=== PATIENT | female | born 1935 | race Caucasian/White ===

== ENCOUNTER → 2017-04-15 | Outpatient (CLI) | payer MEDICARE, OTHER ==
[~2017-04-15] MED LIST: ASP81TEC PO; ENAL10TA PO; LMTL2.5TRX PO; SIMV20TA3 PO
--- NOTE | 2017-04-18 18:55 | Diagnostic Imaging Report ---
Bilateral screening mammogram 2D views with tomosynthesis. The current study was also evaluated with a Computer Aided Detection (CAD) system. INDICATION: Screening. No current complaints stated on the questionnaire. COMPARISON: 04/08/2016. FINDINGS: The breasts are composed of scattered fibroglandular densities. There are scattered benign-appearing calcifications. Allowing for technique and positional differences, no suspicious change is seen. IMPRESSION: No significant change. ACR BI-RADS Category 2: Benign findings. Result letter will be mailed to the patient. Note: At least 10% of breast cancer is not imaged by mammography. Dictated by: Dictated on workstation # [id number]
== END ==
LOC: RAD 10:07
PROVIDERS: ATTEND Internal Medicine
DX: Z12.31 Encounter for screening mammogram for malignant neoplasm of breast (principal)
CPT/HCPCS: 77067

== ENCOUNTER → 2018-01-06 | Outpatient (CLI) | payer MEDICARE, OTHER ==
[2018-01-06 15:02] LABS: BASOPHILS % (AUTO) 0 % (0-10); EOSINOPHILS # (AUTO) 0.3 10^3/uL (0.0-0.3); EOSINOPHILS % (AUTO) 4 % (0-10); HEMATOCRIT 38 % (35-52); HEMOGLOBIN 12.7 G/DL (11.5-16.0); LYMPHOCYTES % (AUTO) 36 % (12-44); MEAN CORPUSCULAR HEMOGLOBIN 31 PG (25-34); MEAN CORPUSCULAR HGB CONC 33 G/DL (32-36); MEAN CORPUSCULAR VOLUME 93 FL (80-99); MEAN PLATELET VOLUME 9.6 FL (7.4-10.4); MONOCYTES # (AUTO) 0.6 X 10^3 (0.0-1.0); MONOCYTES % (AUTO) 7 % (0-12); NEUTROPHILS # (AUTO) 4.4 X 10^3 (1.8-7.8); NEUTROPHILS % (AUTO) 53 % (42-75); PLATELET COUNT 284 10^3/uL (130-400); RED BLOOD COUNT 4.11 10^6/uL (4.35-5.85); RED CELL DISTRIBUTION WIDTH 12.1 % (10.0-14.5); WHITE BLOOD COUNT 8.2 10^3/uL (4.3-11.0)
[2018-01-06 15:19] LABS: ALANINE AMINOTRANSFERASE 15 U/L (0-55); ALBUMIN 4.3 GM/DL (3.2-4.5); ALKALINE PHOSPHATASE 33 U/L (40-136); BILIRUBIN,TOTAL 0.3 MG/DL (0.1-1.0); BUN/CREATININE RATIO 24; CALCIUM 9.7 MG/DL (8.5-10.1); CARBON DIOXIDE 28 MMOL/L (21-32); CHLORIDE 109 MMOL/L (98-107); CREATININE SERUM 0.72 MG/DL (0.60-1.30); GFR ESTIMATED > 60; GLUCOSE 71 MG/DL (70-105); POTASSIUM 4.2 MMOL/L (3.6-5.0); SODIUM 141 MMOL/L (135-145)
--- NOTE | 2018-01-06 15:24 | Diagnostic Imaging Report ---
Indication: Radiculopathy. Comparison: None. Findings: Three views of the lumbar spine are obtained. No acute fracture, malalignment or osseous destructive process is seen. Vertebral body heights are maintained. Disc spaces appear fairly preserved. There is endplate spurring and mild facet arthropathy in the lumbar spine. There are degenerative changes of the sacroiliac joints. Impression: Mild degenerative changes. No acute fracture is seen. Dictated by: Dictated on workstation # [id number]
== END ==
LOC: RAD 14:39
PROVIDERS: ATTEND Family Medicine
DX: M47.26 Other spondylosis with radiculopathy, lumbar region (principal)
CPT/HCPCS: 36415; 72100; 80053; 85025

== ENCOUNTER → 2018-02-04 | Outpatient (CLI) | payer MEDICARE, OTHER ==
--- NOTE | 2018-02-04 09:42 | Diagnostic Imaging Report ---
PROCEDURE: MRI left joint lower extremity without contrast. TECHNIQUE: Multiplanar, multisequence non contrast-enhanced MRI of the left lower extremity was accomplished. INDICATION: Twisting left knee injury one month ago with medial left knee pain since that time. COMPARISON: None FINDINGS: Some sequences demonstrate motion artifact. There is marked bone marrow edema in the medial tibial plateau, crossing the midline. Mild bone marrow edema is seen at the anterior medial femoral condyle. There is questionable linear hypointensity underlying the medial tibial plateau (image 12, series 7), which may represent a nondisplaced impaction or insufficiency fracture. There is a small left knee joint effusion. There is heterogeneity and surface irregularity of the patellofemoral articular cartilage. The medial compartment articular cartilage demonstrates marked thinning, heterogeneity, and surface irregularity with overall high-grade cartilage loss. The lateral compartment demonstrates thinning, surface irregularity and heterogeneity with no large full thickness defect seen. The medial meniscus demonstrates a complete radial tear posteriorly near the root. The lateral meniscus appears intact. The medial collateral ligament and the lateral collateral ligamentous complex appear intact. The anterior and posterior cruciate ligaments are intact. The extensor mechanism is intact. There is minimal edema in Hoffa's fat pad. There is mild subcutaneous edema anteriorly. There is trace fluid and Connelly's cyst. There is moderate deep soft tissue edema posterior to the medial tibia. IMPRESSION: 1. Marked bone marrow edema at the left medial tibial plateau, with suspected insufficiency/impaction fracture. 2. Complete radial tear through the posterior medial meniscus near the root. 3. Small left knee joint effusion. Dictated by: Dictated on workstation # [id number]
== END ==
LOC: RAD 08:39
PROVIDERS: ATTEND Nurse Practitioner Family
DX: S83.242A Other tear of medial meniscus, current injury, left knee, initial encounter (principal); X50.1XXA Overexertion from prolonged static or awkward postures, initial encounter
CPT/HCPCS: 73721

== ENCOUNTER → 2018-04-17 | Outpatient (CLI) | payer MEDICARE, OTHER ==
--- NOTE | 2018-04-18 13:38 | Diagnostic Imaging Report ---
INDICATION: Routine screening. COMPARISON: 04/15/2017 and 04/08/2016. TECHNIQUE: 2D and 3D bilateral screening mammography was performed with CAD. FINDINGS: Scattered fibroglandular densities are identified bilaterally. Benign-appearing parenchymal and vascular calcifications are noted bilaterally. The parenchymal pattern appears stable. No dominant mass or malignant-appearing microcalcifications are seen. The axillae are unremarkable. IMPRESSION: No mammographic features suspicious for malignancy are identified. ACR BI-RADS Category 2: Benign findings. Result letter will be mailed to the patient. Note: At least 10% of breast cancer is not imaged by mammography. Dictated by: Dictated on workstation # [id number]
== END ==
LOC: RAD 15:00
PROVIDERS: ATTEND Internal Medicine
DX: Z12.31 Encounter for screening mammogram for malignant neoplasm of breast (principal)
CPT/HCPCS: 77067

== ENCOUNTER 2018-10-27 18:05 | Emergency (ER) | payer MEDICARE, OTHER | END 2018-10-27 22:55 | disposition home or self-care (01) | LOC: ER 22:55 ==

== ENCOUNTER → 2019-04-18 | Outpatient (CLI) | payer MEDICARE, OTHER ==
--- NOTE | 2019-04-18 10:35 | Diagnostic Imaging Report ---
INDICATION: Routine screening. COMPARISON: 04/17/2018 and 04/15/2017. TECHNIQUE: 2D and 3D bilateral screening mammography was performed with CAD. FINDINGS: Scattered fibroglandular densities are identified bilaterally. Benign parenchymal and vascular calcifications are noted bilaterally. Minimal nodularity in the superior left breast at mid depth is seen, best seen on the MLO view. Additional views are recommended. No other mass or suspicious calcifications are seen. The axillae are unremarkable. IMPRESSION: Left breast density. Additional views are recommended for further evaluation. ACR BI-RADS Category 0: Incomplete. (Needs additional imaging evaluation). Result letter will be mailed to the patient. Note: At least 10% of breast cancer is not imaged by mammography. Dictated by: Dictated on workstation # [id number]
== END ==
LOC: RAD 08:00
PROVIDERS: ATTEND Nurse Practitioner
DX: Z12.31 Encounter for screening mammogram for malignant neoplasm of breast (principal); R92.8 Other abnormal and inconclusive findings on diagnostic imaging of breast
CPT/HCPCS: 77067

== ENCOUNTER → 2019-05-02 | Outpatient (CLI) | payer MEDICARE, OTHER ==
--- NOTE | 2019-05-02 18:31 | Diagnostic Imaging Report ---
INDICATION: Left breast density. Patient presents for additional views. COMPARISON: Correlation is made with recent screening study from 04/18/2019. EXAMINATION: Unilateral left 2D and 3D diagnostic mammography was performed including spot compression MLO and conventional 90 degree lateral views. FINDINGS: Scattered fibroglandular densities in the left breast are noted. No underlying mass is seen with additional views. The area of density noted on screening mammogram most likely represented superimposed tissue. No suspicious calcifications are seen. IMPRESSION: Additional views fail to demonstrate a discrete mass. The patient may return to routine annual screening mammography. ACR BI-RADS Category 2: Benign findings. Result letter will be mailed to the patient. Note: At least 10% of breast cancer is not imaged by mammography. Dictated by: Dictated on workstation # [id number]
== END ==
LOC: RAD 12:40
PROVIDERS: ATTEND Nurse Practitioner
DX: R92.2 Inconclusive mammogram (principal)

== ENCOUNTER → 2020-04-21 | Outpatient (CLI) | payer MEDICARE, OTHER ==
--- NOTE | 2020-04-21 13:02 | Diagnostic Imaging Report ---
INDICATION: Routine screening. COMPARISON: 04/18/2019 and 04/17/2018. TECHNIQUE: 2D and 3D bilateral screening mammography was performed with CAD. FINDINGS: Scattered fibroglandular densities are identified bilaterally. There is an irregular density identified in the left breast posterior depth just medial to the nipple line on the CC view. No corresponding density on the MLO view is identified. There are benign parenchymal and vascular calcifications bilaterally. The axillae are unremarkable. IMPRESSION: Left breast density. Additional views are recommended for further evaluation. ACR BI-RADS Category 0: Incomplete. (Needs additional imaging evaluation). Result letter will be mailed to the patient. Note: At least 10% of breast cancer is not imaged by mammography. Dictated by: Dictated on workstation # [id number]
== END ==
LOC: RAD 10:22
PROVIDERS: ATTEND Nurse Practitioner
DX: Z12.31 Encounter for screening mammogram for malignant neoplasm of breast (principal); R92.8 Other abnormal and inconclusive findings on diagnostic imaging of breast
CPT/HCPCS: 77063; 77067

== ENCOUNTER → 2020-05-09 | Outpatient (CLI) | payer MEDICARE, OTHER ==
--- NOTE | 2020-05-09 14:48 | Diagnostic Imaging Report ---
INDICATION: Left breast density. Patient presents for additional views. Correlation is made with screening study from 04/21/2020. Unilateral left 2-D and 3-D diagnostic mammography was performed. This includes spot compression CC, rolled CC and 90 degree lateral views. There is a persistent slightly irregular density in the far posterior left breast on the cc views just medial to the nipple line. This is approximately 10 to 11 cm deep to the nipple. No corresponding density on the lateral views is seen. IMPRESSION: BI-RADS 0 Persistent slightly irregular density at the medial and far posterior left breast. Further evaluation with ultrasound is recommended and will be performed today. ACR BI-RADS Category 0: Incomplete. (Needs additional imaging evaluation). Result letter will be mailed to the patient. Note: At least 10% of breast cancer is not imaged by mammography. Dictated by: Dictated on workstation # [id number]
--- NOTE | 2020-05-09 16:37 | Diagnostic Imaging Report ---
INDICATION: Left breast density. This study was performed for further evaluation. COMPARISON: Correlation is made with diagnostic mammogram performed earlier the same day as well as screening mammogram from 04/21/2020. EXAMINATION: Sonographic interrogation of the inner left breast was performed. FINDINGS: There is a slightly irregular hypoechoic solid-appearing nodule at the 7:00 location, 8 cm from the nipple. This measures 7 mm x 3 mm x 3 mm. This is similar in shape and location to the density noted mammographically. No internal vascularity is present. IMPRESSION: Slightly irregular hypoechoic nodule at the 7:00 location of the left breast, 8 cm from the nipple. This does correspond in size and location to the mammographic density. Tissue sampling is recommended to rule out a small breast neoplasm. This would be amenable to ultrasound-guided core biopsy. ACR BI-RADS Category 4: Suspicious abnormality. Report was faxed to the office of Dr. Navneet Rawls by daphne. Dictated by: Dictated on workstation # [id number]
== END ==
LOC: RAD 13:56
PROVIDERS: ATTEND Internal Medicine
DX: N63.24 Unspecified lump in the left breast, lower inner quadrant (principal)
CPT/HCPCS: 76642; 77065; G0279

== ENCOUNTER → 2020-05-14 | Outpatient (CLI) | payer MEDICARE, OTHER ==
[~2020-05-14] VITALS: Ht 152.4 cm; Wt 63.6 kg
[~2020-05-14] MED LIST changes: +LIDOCAINE 1% INJ 20 ML 20 ML VIAL INJ ONE
--- NOTE | 2020-05-14 14:38 | Diagnostic Imaging Report ---
INDICATION: Left breast density. Patient is status post ultrasound-guided core biopsy. COMPARISON: Correlation is made with the recent mammogram from 04/21/2020. FINDINGS: Unilateral left 2D CC and ML mammography was performed. There is a marker clip in the inferior and medial left breast corresponding to the previously noted density. IMPRESSION: The marker clip appears to be in appropriate location the medial and inferior left breast. Pathology results are currently pending. Dictated by: Dictated on workstation # [id number]
--- NOTE | 2020-05-14 17:55 | Diagnostic Imaging Report ---
INDICATION: Left breast nodule. PROCEDURE: Patient was brought to the sonographic suite and placed in the supine position. Ultrasound imaging of the left breast was performed to evaluate appropriate entry site. Left breast was then prepped and draped in the usual sterile fashion. A total of four core biopsies of the hypoechoic nodule at the 7:00 location of the left breast, 8 cm from the nipple, was obtained utilizing 14-gauge Achieve needle. A marker clip was then deployed. Hemostasis was obtained using manual compression. Patient tolerated the procedure well and left the department in stable condition. IMPRESSION: Successful ultrasound-guided core biopsy of a left breast nodule in the 7:00 location. Pathology results are currently pending. Dictated by: Dictated on workstation # [id number]
== END ==
LOC: RAD 12:18
PROVIDERS: ATTEND Internal Medicine
DX: N63.24 Unspecified lump in the left breast, lower inner quadrant (principal)
CPT/HCPCS: 19083; 77065; 88305; 88360; A4648; G0279

== ENCOUNTER 2020-05-20 13:39 | Outpatient (RCR) | payer MEDICARE, OTHER ==
[~2020-05-20 13:39] MED LIST changes: -LIDOCAINE 1% INJ 20 ML 20 ML VIAL INJ ONE
[2020-06-11] MEDS ORDERED: ASPI-999 PO (15:02)
[2020-06-11] MEDS ORDERED: DIPH1TAB PO (15:02)
[2020-06-11] MEDS ORDERED: SIMV40TA25 PO (15:02)
[2020-06-11] MEDS ORDERED: CHOL10007 PO (15:02)
[2020-06-11] MEDS ORDERED: ENAL10TA16 PO (15:02)
[2020-06-11] MEDS ORDERED: [UNRECOGNIZED DRUG - CODE] PO (15:02)
[2020-06-18] MEDS ORDERED: HYDR-4226 PO (13:11)
== END 2020-06-26 15:55 | disposition home or self-care (01) ==
LOC: ONC 13:39
PROVIDERS: ATTEND Internal Medicine Hematology & Oncology
DX: C50.912 Malignant neoplasm of unspecified site of left female breast (principal); I10 Essential (primary) hypertension
CPT/HCPCS: 99212

== ENCOUNTER → 2020-05-22 | Outpatient (CLI) | payer MEDICARE, OTHER ==
[~2020-05-22] MED LIST changes: +HOLD METFORMIN - RECEIVED CONTRAST 20 ML VIAL IV SCH
[2020-05-22] MEDS: NS 100 ML (IVPB) BAG IV ONE (08:34)
[2020-05-22] MEDS: IOHEXOL 350 MG/ML 100 ML (OMNIPAQUE 350) VIAL IV ONE (08:34)
--- NOTE | 2020-05-22 09:03 | Diagnostic Imaging Report ---
PROCEDURE: CT chest with contrast, CT abdomen with and without contrast. TECHNIQUE: Precontrast acquisitions were acquired through the abdomen. Multiple contiguous axial images were obtained through the chest and abdomen after administration of intravenous contrast. Auto Exposure Controls were utilized during the CT exam to meet ALARA standards for radiation dose reduction. INDICATION: Breast cancer. Compared with the study 10/24/2011. CHEST: No lung mass or suspicious pulmonary nodule. No hilar or mediastinal lymphadenopathy. The axilla appeared normal. The retropectoral chest wall normal. A metallic clip in the left breast posteromedially and inferiorly has been placed in the interim. The subcentimeter density visualized mammographically and sonographically cannot be detected at this exam. No identifiable chest wall mass or fluid collection. There is no pleural or pericardial effusion. There is some benign calcified granulomatous shmuel residua. No suspicious lytic or sclerotic bony lesion. No findings suggestive of metastatic disease. ABDOMEN: The liver unremarkable. The adrenals are negative. There are multiple splenic calcified granulomata as a benign finding. Pancreas within normal limits. There is a small exophytic cyst off the lower pole of the right kidney decreased in size and density from the comparison confirming its benignity. No suspicious lytic or sclerotic bony lesion. No pathological appearing lymph nodes. IMPRESSION: 1. No findings of regional or distant metastasis. 2. No acute-appearing abnormality in the chest or abdomen. 3. Benign calcified granulomatous disease noted incidentally. 4. Decreasing size of this more simple and benign right renal cortical cyst when compared with prior Dictated by: Dictated on workstation # [id number]
== END ==
LOC: RAD 08:02
PROVIDERS: ATTEND Internal Medicine Hematology & Oncology
DX: C50.919 Malignant neoplasm of unspecified site of unspecified female breast (principal); N28.1 Cyst of kidney, acquired
CPT/HCPCS: 71260; 74170

== ENCOUNTER 2020-06-11 05:53 | Outpatient (CLI) | payer MEDICARE, OTHER ==
[~2020-06-11] VITALS: Ht 157 cm; Wt 63.6 kg
[~2020-06-11 05:53] MED LIST changes: -HOLD METFORMIN - RECEIVED CONTRAST 20 ML VIAL IV SCH
[2020-06-11] MEDS ORDERED: CHOL10007 PO (15:02)
[2020-06-11] MEDS ORDERED: ENAL10TA PO (15:02)
[2020-06-11] MEDS ORDERED: ASPI-999 PO (15:02)
[2020-06-11] MEDS ORDERED: SIMV40TA25 PO (15:02)
[2020-06-11] MEDS ORDERED: [UNRECOGNIZED DRUG - CODE] PO (15:02)
[2020-06-11] MEDS ORDERED: DIPH1TAB PO (15:02)
== END 2020-06-11 15:11 | disposition home or self-care (01) ==
LOC: PREOP 05:53
PROVIDERS: ATTEND Surgery
DX: Z01.818 Encounter for other preprocedural examination (principal)

== ENCOUNTER 2020-06-18 06:04 | Day surgery (SDC) | payer MEDICARE, OTHER ==
[~2020-06-18] VITALS: Ht 157 cm; Wt 62.7 kg
[2020-06-18] VITALS (12 sets, daily range): BP systolic 144–186; BP diastolic 58–90
[~2020-06-18 06:04] MED LIST changes: +ASPI-999 PO; +CHOL10007 PO; +DIPH1TAB PO; +ENAL10TA16 PO; +SIMV40TA25 PO; +[UNRECOGNIZED DRUG - CODE] PO
[2020-06-18] MEDS ORDERED: ceFAZolin 2 GM IV Premixed 50 ML IV ONE (06:15)
[2020-06-18] MEDS: LACTATED RINGERS 1,000 ML IV PRN ×2 (06:26→12:24)
[2020-06-18] MEDS ORDERED: LIDOCAINE 1% INJ 20 ML 20 ML VIAL INJ ONE (09:00)
--- NOTE | 2020-06-18 10:06 | Diagnostic Imaging Report ---
INDICATION: Left breast carcinoma. This study is performed for lymphoscintigraphy for identification of sentinel node. DETAILS OF THE PROCEDURE: A total of 1.0 mCi of filtered technetium 99m sulfur colloid was injected in 4 separate aliquots in a periareolar distribution. Imaging over the chest was performed. There are several lymph nodes identified in the left axilla. The largest and most intense lymph node was marked on the patient's skin. The patient tolerated the procedure well and was sent to preop in satisfactory condition. IMPRESSION: Left breast lymphoscintigraphy for identification of a sentinel node. Dictated by: Dictated on workstation # [id number]
--- NOTE | 2020-06-18 10:24 | Diagnostic Imaging Report ---
INDICATION: Left breast carcinoma. Patient presents for ultrasound-guided hookwire placement. DETAILS OF THE PROCEDURE: The patient was brought to the sonographic suite and placed on the table in the supine position. Ultrasound imaging of the left breast was performed to evaluate for an appropriate entry site. The left breast was then prepped and draped in the usual sterile fashion. A small amount of 1% lidocaine was utilized for local anesthesia. A hookwire needle was advanced and placed through the hypoechoic nodule at the 7 o'clock location of the left breast 8 cm from the nipple using sonographic guidance. The hookwire was then deployed and the needle was removed. The wire was affixed to the patient's skin. The patient tolerated the procedure well was sent for a post procedure mammogram in satisfactory condition. IMPRESSION: Hookwire localization of the hypoechoic nodule at the 7 o'clock location in the left breast 8 cm from the nipple using sonographic guidance. Dictated by: Dictated on workstation # [id number]
[2020-06-18] MEDS ORDERED: fentaNYL INJECTION 100 MCG/2 ML AMP ONE (10:29)
[2020-06-18] MEDS ORDERED: proPOfol 200 MG/20 ML (DIPRIVAN) VIAL IV ONE (10:29)
[2020-06-18] MEDS ORDERED: LIDOCAINE PF 2% 5 ML (XYLOCAINE) VIAL ONE (10:29)
[2020-06-18] MEDS ORDERED: MIDAZOLAM 2 MG/2 ML (VERSED) VIAL ONE (10:29)
[2020-06-18] MEDS ORDERED: SEVOFLURANE (ULTANE) 15 ML INHAL SOLN ONE ×2 (10:30→13:14)
[2020-06-18] MEDS ORDERED: ONDANSETRON 4 MG/2 ML (SDV) Z0FRAN ONE (10:30)
[2020-06-18] MEDS ORDERED: BUP/EPI 0.25% 1:200,000 (MARCAINE) 30 ML VIAL ONE (10:33)
[2020-06-18] MEDS ORDERED: METHYLENE BLUE 0.5% (PROVAYBLUE) 50 mg/10 ml vial IV ONE (10:33)
[2020-06-18] MEDS ORDERED: ceFAZolin 2 GM IV Premixed 50 ML ONE (12:12)
--- NOTE | 2020-06-18 12:20 | Progress Note-Pre Operative ---
Pre-Operative Progress Note H&P Reviewed The H&P was reviewed, patient examined and no changes noted. Time Seen by Provider: 11:56 Date H&P Reviewed: Jun 18, 2020 Time H&P Reviewed: 11:57 Pre-Operative Diagnosis: Left breast Cancer, site marked ELOISA MACHADO DO Jun 18, 2020 12:19
--- NOTE | 2020-06-18 12:48 | Diagnostic Imaging Report ---
INDICATION: Left breast carcinoma. Study is performed post hookwire placement using ultrasound guidance. Unilateral left 2-D CC and ML mammography was performed after a hookwire placement using ultrasound guidance. The hookwire is in place. The clip from prior biopsy is just beyond the tip of the hook wire. The clip is located slightly more medial, posterior and slightly cephalad to the tip of the hook wire. IMPRESSION: Hookwire placement, as described. Dictated by: Dictated on workstation # [id number]
[2020-06-18] MEDS ORDERED: HYDR-4226 PO (13:11)
--- NOTE | 2020-06-18 13:11 | Progress Note-Post Operative ---
Post-Operative Progess Note Surgeon (s)/Photogrammetric Tech (s) Surgeon ELOISA MACHADO DO Photogrammetric Tech: Woodrow Pre-Operative Diagnosis Left breast Cancer, site marked Post-Operative Diagnosis Same pending path Procedure & Operative Findings Date of Procedure 06/18/20 Procedure Performed/Findings Left breast Partial Mastectomy with needle loc Left [place] lymph node bx Anesthesia Type LMA Estimated Blood Loss Estimated blood loss (mL): less than 10 ml Specimens/Packing Specimens Removed Partial mastectomy with needle [place] lymph node x 3 ELOISA MACHADO DO Jun 18, 2020 13:11
--- NOTE | 2020-06-18 13:13 | Discharge Inst-Surgical ---
Discharge Inst-Surgical Depart Medication/Instructions New, Converted or Re-Newed RX: RX Given to Pt/Family Patient Instructions Follow up Appt: Make appointment for 1 week. [phone] Instructions: No strenuous activity. May shower in 24 hours, no tub bath or soaking. Use incentive spirometer at home as directed. No Smoking Skin/Wound Care: May remove bandages in am. You need to leave the Dermabond on incision it will fall off on it's own. Wear a tight fitting bra all day for next week. Symptoms to Report: Appetite Changes, Extremity Discoloration, Numbness/Tingling, Swelling Increased, Bleeding Excessive, Eyesight Changes, Pain Increased, Urine Color Change, Constipation(Persistent), Fever over 101 degree F, Pain/Pressure in chest, Urinating Difficulty, Cough Up/Vomit Blood, Heart Beat Irreg/Pounding, Pain/Pressure in jaw, Cramps in feet or legs, Lightheadedness, Pain/Pressure in shoulder, Diarrhea(Persistent), Memory Changes Suddenly, Questions/Concerns, Weight gain consecutive days, Dizziness/Fainting, Nausea/Vomiting, Shortness of Breath, Weight gain over 2 pounds If questions or concerns contact your physician Or seek help at emergency department. Activity Activity as Tolerated: Yes Activity Instructions: Avoid Stress to Incision Driving Instructions: No Driving/Refer to Dr. Ko Discharge Diet: No Restrictions Diet After 24 Hours: Clear Liquid if Nauseous If Any Problems/Questions/Issu: Contact Your Physician, Go to Emergency Room Skin/Wound Care Infection Signs and Symptoms: Increased Redness, Foul Odor of Wound, Increased Drainage, Skin Itchy or Has a Rash, Increased Swelling, Temperature Above 101 F Wound Care Comment: Wear tight bra to help with pain, 25/04 for one week; except to shower Bathing Instructions: Shower Stitches/Yonatan/Dermabond Dis: Dermabond Ice Pack: Ice On and Off Site ELOISA MACHADO DO Jun 18, 2020 13:13
[2020-06-18] MEDS ORDERED: morphine INJ 10 MG/ML 1ML (SYR OR VIAL) ONE (13:39)
--- NOTE | 2020-06-18 13:49 | Diagnostic Imaging Report ---
INDICATION: Left breast carcinoma, status post lumpectomy. Specimen radiograph was submitted post lumpectomy. The hook wire is located along the periphery of the specimen. The nodular lesion most suggestive of a known breast cancer is located at coordinates DNF 6. Clip is located at coordinate F7. IMPRESSION: Satisfactory specimen radiograph demonstrating the lesion as well as the hookwire and biopsy clip. Dictated by: Dictated on workstation # [id number]
[2020-06-18] MEDS ORDERED: ONDANSETRON 4 MG/2 ML (SDV) Z0FRAN IVP PRN (14:15)
[2020-06-18] MEDS ORDERED: HYDROmorphone 2 MG/ML VIAL (DILAUDID) IV ONE (14:15)
[2020-06-18] MEDS ORDERED: morphine INJ 10 MG/ML 1ML (SYR OR VIAL) IVP ONE (14:15)
--- NOTE | 2020-06-18 14:29 | OPERATIVE REPORT ---
DATE OF SERVICE: 06/18/2020 PREOPERATIVE DIAGNOSIS: Left breast cancer. POSTOPERATIVE DIAGNOSIS: Left breast cancer, pending pathology. PROCEDURES: 1. Left breast partial mastectomy with needle localization. 2. [place] lymph node biopsy. 3. Injection of methylene blue dye. SURGEON: Richar Weir DO NUTRITION INTERNSHIP: Caesar Troy DO. ANESTHESIA: LMA. SPECIMEN: 1. Left breast tissue with needle. 2. [place] lymph node x3. BLOOD LOSS: Scant. FLUIDS: Per anesthesia. POSTOPERATIVE CONDITION: Stable. INDICATION FOR PROCEDURE: The patient is an 84-year-old female, who had a breast biopsy, which came back as cancer, needed a partial mastectomy with sentinel lymph nodes. FINDINGS: The patient had a partial mastectomy performed. The patient had the area localized by radiology and lymphoscintigraphy done and then we injected methylene blue. The site reading from the Neoprobe was 220, 235. Ex-vivo over the lymph node was 26 and then in vivo, we got 229, first node ex-vivo is 906. Second node with 313 and third node was 362. PROCEDURE NOTE: After informed consent was obtained, the patient was first sent to radiology where she had needle localization performed. She also then had a lymphoscintigraphy. She was then brought back to the operating room, placed on the operating table in supine position, the left breast had been marked, timeout was performed, everyone agreed on left side, then did an injection of methylene blue at the 3 o'clock, 6 o'clock, 9 o'clock and 12 o'clock position. A 0.5 mL of methylene blue into the subcutaneous tissue. This was then massaged in for 5 minutes and she was sterilely prepped and draped in normal fashion. She had a needle that was coming around the 9 o'clock position, but on the mammogram looks like it was at the 7 o'clock position, so I elected to do an incision on the 7 o'clock radial line, first injected with local, then made an incision with #15 blade, carried down through skin and subcutaneous tissue and created flaps superiorly and inferiorly and then dissected out, able to find the wire and then dissected down along the wire to the tip and then go just past the tip and did a partial mastectomy of this area removing tissue, got an extra sort of tissue coming right off where I thought the mass might be, we then marked it guidewire was marked at the 3 o'clock and 9 o'clock position as well as right where I took off the extra tissue. We did then vamsi out extra tissue with two sutures that was the top basically and lateral aspect of that portion of the specimen. At this point, I then copiously irrigated with sterile water. Hemostasis obtained and then closed the incision with 4-0 undyed Monocryl five interrupted subcuticular stitches. Area was cleaned and dried. We then placed a blue towel here, changed gloves and had a different set up. Prior to this, we used the Neoprobe and found the site had been marked by radiology. I made an incision just in the axilla under the pectoralis major muscle, I first infiltrated with local, made an incision with a #15 blade, carried down to skin and subcutaneous tissue, then deepened down to subcutaneous tissue with Bovie electrocautery as well as blunt dissection. I then used the Neoprobe and found in vivo reading of 229 this us to our first lymph node. It was blue and hot. We pulled it out and measured 906. Placed the Neoprobe back in and directed towards this another couple nodes, dissected with Bovie electrocautery and blunt dissection with a hemostat. These were both blue and both hot. Ex-vivo with the second was 313 and the third was 362. These were removed. Placed the Neoprobe, did not find any other hot areas at this point, copiously irrigated with sterile water and then closed the incision with 3-0 Vicryl suture and then 4-0 undyed Monocryl in a running subcuticular fashion. Area was cleaned and dried. Dermabond placed over both as well as pressure and fluff dressing. The patient tolerated the procedure. Sponge, instrument and needle count correct at the end of the case. Dr. Troy assisted in this case helping to make incisions, close incisions, identify anatomy, hold anatomy out of the way. Job ID: [id number] DocumentID: [id number] Dictated Date: 06/18/2020 13:26:15 Appeals Officer Date: 06/18/2020 14:28:44 Dictated By: RICHAR WEIR DO
== END 2020-06-18 15:25 | disposition home or self-care (01) ==
LOC: CARD 06:04
PROVIDERS: ATTEND Surgery
DX: C50.912 Malignant neoplasm of unspecified site of left female breast (principal); I10 Essential (primary) hypertension; E78.5 Hyperlipidemia, unspecified; K58.9 Irritable bowel syndrome, unspecified; Z79.899 Other long term (current) drug therapy; Z87.891 Personal history of nicotine dependence; Z79.82 Long term (current) use of aspirin; Z11.2 Encounter for screening for other bacterial diseases
CPT/HCPCS: 19285; 19301; 38525; 76098; 77065; 78195; 87081; A9541; G0279

== ENCOUNTER 2020-07-01 14:57 | Outpatient (RCR) | payer MEDICARE, OTHER ==
[~2020-07-01 14:57] MED LIST changes: +HYDR-4226 PO
== END 2020-09-29 | disposition home or self-care (01) ==
LOC: ONC 14:57
PROVIDERS: ATTEND Internal Medicine Hematology & Oncology
DX: C50.912 Malignant neoplasm of unspecified site of left female breast (principal); I10 Essential (primary) hypertension
CPT/HCPCS: 99213

== ENCOUNTER 2020-12-25 13:38 | Outpatient (RCR) | payer MEDICARE, OTHER ==
[2020-12-25 13:55] LABS: BASOPHILS # (AUTO) 0.1 10^3/uL (0.0-0.1); BASOPHILS % (AUTO) 1 % (0-10); EOSINOPHILS # (AUTO) 0.3 10^3/uL (0.0-0.3); EOSINOPHILS % (AUTO) 4 % (0-10); HEMATOCRIT 35 % (35-52); HEMOGLOBIN 11.4 g/dL (11.5-16.0); LYMPHOCYTES # (AUTO) 3.3 10^3/uL (1.0-4.0); LYMPHOCYTES % (AUTO) 39 % (12-44); MEAN CORPUSCULAR HEMOGLOBIN 31 pg (25-34); MEAN CORPUSCULAR HGB CONC 33 g/dL (32-36); MEAN CORPUSCULAR VOLUME 95 fL (80-99); MEAN PLATELET VOLUME 9.4 fL (9.0-12.2); MONOCYTES # (AUTO) 0.6 10^3/uL (0.0-1.0); MONOCYTES % (AUTO) 7 % (0-12); NEUTROPHILS # (AUTO) 4.2 10^3/uL (1.8-7.8); NEUTROPHILS % (AUTO) 49 % (42-75); PLATELET COUNT 279 10^3/uL (130-400); WHITE BLOOD COUNT 8.6 10^3/uL (4.3-11.0)
[2020-12-25 14:25] LABS: ALANINE AMINOTRANSFERASE 9 U/L (0-55); ALBUMIN 4.1 GM/DL (3.2-4.5); ALKALINE PHOSPHATASE 38 U/L (40-136); BILIRUBIN,TOTAL 0.3 MG/DL (0.1-1.0); BUN/CREATININE RATIO 21; CALCIUM 9.1 MG/DL (8.5-10.1); CARBON DIOXIDE 24 MMOL/L (21-32); CHLORIDE 106 MMOL/L (98-107); CREATININE SERUM 0.82 MG/DL (0.60-1.30); GFR ESTIMATED > 60; GLUCOSE 98 MG/DL (70-105); POTASSIUM 3.7 MMOL/L (3.6-5.0); SODIUM 137 MMOL/L (135-145); TOTAL PROTEIN 6.9 GM/DL (6.4-8.2)
== END 2021-03-25 | disposition home or self-care (01) ==
LOC: ONC 13:38
PROVIDERS: ATTEND Internal Medicine Hematology & Oncology
DX: C50.412 Malignant neoplasm of upper-outer quadrant of left female breast (principal); I10 Essential (primary) hypertension
CPT/HCPCS: 80053; 85025; G0463; 99213

== ENCOUNTER → 2021-06-22 | Outpatient (CLI) | payer MEDICARE, OTHER ==
--- NOTE | 2021-06-22 14:15 | Diagnostic Imaging Report ---
Indication: History of breast cancer. Comparison made with prior examination 06/18/2020, 05/14/2020, 04/28/2020 and 04/18/2019. FINDINGS: There are scattered fibroglandular densities. There are vascular and benign type calcifications. There is no dominant mass, spiculated lesions or suspicious calcifications identified. Skin, nipples and axilla are unremarkable IMPRESSION: Category 2 benign ACR BI-RADS Category 2: Benign findings. Result letter will be mailed to the patient. Note: At least 10% of breast cancer is not imaged by mammography. Dictated by: Dictated on workstation # [id number]
== END ==
LOC: RAD 13:46
PROVIDERS: ATTEND Internal Medicine Hematology & Oncology
DX: C50.919 Malignant neoplasm of unspecified site of unspecified female breast (principal)
CPT/HCPCS: 77066; G0279; 77062

== ENCOUNTER 2021-06-25 14:01 | Outpatient (RCR) | payer MEDICARE, OTHER ==
[2021-06-25 14:14] LABS: BASOPHILS % (AUTO) 0 % (0-10); EOSINOPHILS % (AUTO) 0 % (0-10); HEMATOCRIT 36 % (35-52); HEMOGLOBIN 11.5 g/dL (11.5-16.0); LYMPHOCYTES # (AUTO) 1.1 10^3/uL (1.0-4.0); LYMPHOCYTES % (AUTO) 16 % (12-44); MEAN CORPUSCULAR HEMOGLOBIN 30 pg (25-34); MEAN CORPUSCULAR HGB CONC 32 g/dL (32-36); MEAN CORPUSCULAR VOLUME 94 fL (80-99); MEAN PLATELET VOLUME 9.7 fL (9.0-12.2); MONOCYTES # (AUTO) 0.1 10^3/uL (0.0-1.0); MONOCYTES % (AUTO) 2 % (0-12); NEUTROPHILS # (AUTO) 5.8 10^3/uL (1.8-7.8); NEUTROPHILS % (AUTO) 81 % (42-75); PLATELET COUNT 238 10^3/uL (130-400); WHITE BLOOD COUNT 7.1 10^3/uL (4.3-11.0)
[2021-06-25 14:37] LABS: BILIRUBIN,TOTAL 0.4 MG/DL (0.1-1.0); CALCIUM 9.3 MG/DL (8.5-10.1); CREATININE SERUM 0.87 MG/DL (0.60-1.30); POTASSIUM 4.5 MMOL/L (3.6-5.0); TOTAL PROTEIN 6.9 GM/DL (6.4-8.2)
== END 2021-09-23 | disposition home or self-care (01) ==
LOC: ONC 14:01
PROVIDERS: ATTEND Internal Medicine Hematology & Oncology
DX: C50.412 Malignant neoplasm of upper-outer quadrant of left female breast (principal)
CPT/HCPCS: 80053; 85025; G0463; 99213

== ENCOUNTER → 2021-12-24 | Outpatient (CLI) | payer MEDICARE, OTHER ==
[2021-12-24 14:44] LABS: BASOPHILS % (AUTO) 1 % (0-10); EOSINOPHILS # (AUTO) 0.1 10^3/uL (0.0-0.3); EOSINOPHILS % (AUTO) 2 % (0-10); HEMATOCRIT 37 % (35-52); HEMOGLOBIN 11.8 g/dL (11.5-16.0); LYMPHOCYTES # (AUTO) 3.8 10^3/uL (1.0-4.0); LYMPHOCYTES % (AUTO) 44 % (12-44); MEAN CORPUSCULAR HEMOGLOBIN 30 pg (25-34); MEAN CORPUSCULAR HGB CONC 32 g/dL (32-36); MEAN CORPUSCULAR VOLUME 93 fL (80-99); MEAN PLATELET VOLUME 9.9 fL (9.0-12.2); MONOCYTES # (AUTO) 0.9 10^3/uL (0.0-1.0); MONOCYTES % (AUTO) 10 % (0-12); NEUTROPHILS # (AUTO) 3.6 10^3/uL (1.8-7.8); NEUTROPHILS % (AUTO) 43 % (42-75); PLATELET COUNT 263 10^3/uL (130-400); WHITE BLOOD COUNT 8.5 10^3/uL (4.3-11.0)
[2021-12-24 14:48] LABS: ALBUMIN 4.3 GM/DL (3.2-4.5); BILIRUBIN,TOTAL 0.4 MG/DL (0.1-1.0); CALCIUM 9.8 MG/DL (8.5-10.1); CREATININE SERUM 0.91 MG/DL (0.60-1.30); POTASSIUM 4.2 MMOL/L (3.6-5.0)
== END ==
LOC: EDSTATUS 09-24 09:19 → ONC 14:29
PROVIDERS: ATTEND Internal Medicine Hematology & Oncology
DX: C50.412 Malignant neoplasm of upper-outer quadrant of left female breast (principal); Z90.12 Acquired absence of left breast and nipple
CPT/HCPCS: 80053; 85025; G0463; 36415; 99213

== ENCOUNTER → 2022-06-25 | Outpatient (CLI) | payer MEDICARE ==
--- NOTE | 2022-06-25 15:11 | Diagnostic Imaging Report ---
Indication: Routine screening. Comparison is made with prior mammograms 06/22/2021 and 04/21/2020. 2-D and 3-D bilateral screening mammography was performed with CAD. Scattered fibroglandular densities are identified bilaterally. Scattered benign parenchymal and vascular calcifications are noted bilaterally. No mass or malignant-appearing microcalcifications are seen. Axillae are unremarkable. IMPRESSION: BI-RADS Category 2 No mammographic features suspicious for malignancy are identified. ACR BI-RADS Category 2: Benign findings. Result letter will be mailed to the patient. Note: At least 10% of breast cancer is not imaged by mammography. Dictated by: Dictated on workstation # [id number]
== END ==
LOC: RAD 09:15
PROVIDERS: ATTEND Internal Medicine Hematology & Oncology
DX: Z12.31 Encounter for screening mammogram for malignant neoplasm of breast (principal); Z85.3 Personal history of malignant neoplasm of breast
CPT/HCPCS: 77063; 77067

== ENCOUNTER → 2022-07-01 | Outpatient (CLI) | payer MEDICARE ==
[2022-07-01 13:21] LABS: BASOPHILS % (AUTO) 0 % (0-10); EOSINOPHILS # (AUTO) 0.2 10^3/uL (0.0-0.3); EOSINOPHILS % (AUTO) 3 % (0-10); HEMATOCRIT 35 % (35-52); HEMOGLOBIN 11.6 g/dL (11.5-16.0); LYMPHOCYTES % (AUTO) 41 % (12-44); MEAN CORPUSCULAR HEMOGLOBIN 30 pg (25-34); MEAN CORPUSCULAR HGB CONC 33 g/dL (32-36); MEAN CORPUSCULAR VOLUME 91 fL (80-99); MEAN PLATELET VOLUME 9.9 fL (9.0-12.2); MONOCYTES # (AUTO) 0.7 10^3/uL (0.0-1.0); MONOCYTES % (AUTO) 10 % (0-12); NEUTROPHILS # (AUTO) 3.4 10^3/uL (1.8-7.8); NEUTROPHILS % (AUTO) 46 % (42-75); PLATELET COUNT 224 10^3/uL (130-400); WHITE BLOOD COUNT 7.3 10^3/uL (4.3-11.0)
[2022-07-01 13:46] LABS: ALBUMIN 4.2 GM/DL (3.2-4.5); BILIRUBIN,TOTAL 0.4 MG/DL (0.1-1.0); CALCIUM 9.2 MG/DL (8.5-10.1); CREATININE SERUM 0.82 MG/DL (0.60-1.30); POTASSIUM 3.9 MMOL/L (3.6-5.0); TOTAL PROTEIN 6.9 GM/DL (6.4-8.2)
== END ==
LOC: ONC 13:05
PROVIDERS: ATTEND Internal Medicine Hematology & Oncology
DX: C50.412 Malignant neoplasm of upper-outer quadrant of left female breast (principal)
CPT/HCPCS: 80053; 85025; G0463; 36415; 99213

== ENCOUNTER 2022-12-29 13:53 | Outpatient (RCR) | payer MEDICARE ==
[~2022-12-29 13:53] MED LIST changes: -ENAL10TA16 PO; +ENLP10T PO
[2022-12-29 14:06] LABS: BASOPHILS % (AUTO) 0 % (0-10); EOSINOPHILS # (AUTO) 0.1 10^3/uL (0.0-0.3); EOSINOPHILS % (AUTO) 1 % (0-10); HEMATOCRIT 34 % (35-52); LYMPHOCYTES # (AUTO) 2.2 10^3/uL (1.0-4.0); LYMPHOCYTES % (AUTO) 37 % (12-44); MEAN CORPUSCULAR HEMOGLOBIN 30 pg (25-34); MEAN CORPUSCULAR HGB CONC 33 g/dL (32-36); MEAN CORPUSCULAR VOLUME 93 fL (80-99); MEAN PLATELET VOLUME 10.1 fL (9.0-12.2); MONOCYTES # (AUTO) 0.8 10^3/uL (0.0-1.0); MONOCYTES % (AUTO) 13 % (0-12); NEUTROPHILS # (AUTO) 2.9 10^3/uL (1.8-7.8); NEUTROPHILS % (AUTO) 48 % (42-75); PLATELET COUNT 223 10^3/uL (130-400); WHITE BLOOD COUNT 6.1 10^3/uL (4.3-11.0)
[2022-12-29 14:31] LABS: ALBUMIN 3.9 GM/DL (3.2-4.5); BILIRUBIN,TOTAL 0.3 MG/DL (0.1-1.0); CALCIUM 9.6 MG/DL (8.5-10.1); CREATININE SERUM 0.84 MG/DL (0.60-1.30); POTASSIUM 4.1 MMOL/L (3.6-5.0); TOTAL PROTEIN 6.5 GM/DL (6.4-8.2)
== END 2022-12-31 | disposition home or self-care (01) ==
LOC: ONC 13:53
PROVIDERS: ATTEND Internal Medicine Hematology & Oncology
DX: Z08 Encounter for follow-up examination after completed treatment for malignant neoplasm (principal); Z85.3 Personal history of malignant neoplasm of breast; R05.3 Chronic cough; D64.9 Anemia, unspecified; Z87.19 Personal history of other diseases of the digestive system
CPT/HCPCS: 36415; 80053; 85025

== ENCOUNTER → 2022-12-29 | Outpatient (CLI) | payer MEDICARE ==
--- NOTE | 2022-12-29 17:06 | Diagnostic Imaging Report ---
EXAMINATION: Chest 2 view HISTORY: PERSISTENT COUGH COMPARISON: None available. FINDINGS: Heart size and pulmonary vasculature are normal. The lungs are clear without consolidation, pleural effusion, or pneumothorax. Degenerative changes of the thoracic spine. Osseous structures are otherwise intact. IMPRESSION: 1. No acute radiographic abnormality in the chest. Dictated by: Dictated on workstation # [id number]
== END ==
LOC: RAD 14:41
PROVIDERS: ATTEND Internal Medicine Hematology & Oncology
DX: R05.3 Chronic cough (principal)
CPT/HCPCS: 71046

== ENCOUNTER 2023-01-05 13:47 | Outpatient (RCR) | payer MEDICARE | END 2023-01-30 | LOC: ONC 13:47 | PROVIDERS: ATTEND Internal Medicine Hematology & Oncology | DX: Z12.31 Encounter for screening mammogram for malignant neoplasm of breast (principal); I10 Essential (primary) hypertension; Z85.3 Personal history of malignant neoplasm of breast ==

== ENCOUNTER 2023-07-20 14:03 | Outpatient (RCR) | payer MEDICARE ==
[2023-07-20 14:24] LABS: BASOPHILS % (AUTO) 0 % (0-10); EOSINOPHILS % (AUTO) 0 % (0-10); HEMATOCRIT 33 % (35-52); HEMOGLOBIN 10.7 g/dL (11.5-16.0); LYMPHOCYTES # (AUTO) 2.7 X 10^3 (1.0-4.0); LYMPHOCYTES % (AUTO) 36 % (12-44); MEAN CORPUSCULAR HEMOGLOBIN 30 pg (25-34); MEAN CORPUSCULAR HGB CONC 32 g/dL (32-36); MEAN CORPUSCULAR VOLUME 94 fL (80-99); MONOCYTES # (AUTO) 0.8 X 10^3 (0.0-1.0); MONOCYTES % (AUTO) 10 % (0-12); NEUTROPHILS # (AUTO) 3.9 X 10^3 (1.8-7.8); NEUTROPHILS % (AUTO) 53 % (42-75); PLATELET COUNT 215 10^3/uL (130-400); WHITE BLOOD COUNT 7.4 10^3/uL (4.3-11.0)
[2023-07-20 14:41] LABS: ALBUMIN 3.9 GM/DL (3.2-4.5); BILIRUBIN,TOTAL 0.3 MG/DL (0.1-1.0); CALCIUM 9.1 MG/DL (8.5-10.1); CREATININE SERUM 0.86 MG/DL (0.60-1.30); POTASSIUM 3.7 MMOL/L (3.6-5.0); TOTAL PROTEIN 6.4 GM/DL (6.4-8.2)
== END 2023-08-02 | disposition home or self-care (01) ==
LOC: ONC 14:03
PROVIDERS: ATTEND Internal Medicine Hematology & Oncology
DX: C50.912 Malignant neoplasm of unspecified site of left female breast (principal); I10 Essential (primary) hypertension; D64.9 Anemia, unspecified; Z71.89 Other specified counseling; Z87.19 Personal history of other diseases of the digestive system
CPT/HCPCS: 80053; 85025

== ENCOUNTER → 2023-08-10 | Outpatient (CLI) | payer MEDICARE ==
--- NOTE | 2023-08-10 15:46 | Diagnostic Imaging Report ---
INDICATION: Right shoulder pain. EXAMINATION: Right shoulder, 3 views, on 08/10/2023. FINDINGS: There is sclerosis and spurring at the greater tuberosity, consistent with chronic rotator cuff tendinopathy. Narrowing and spurring at the acromioclavicular joint are consistent with osteoarthritic findings. No acute fractures or dislocations are appreciated. Within the visualized lung, nonspecific hyperdensities in the right lung base are noted, possibly calcified granulomata, but dedicated chest x-ray is recommended. A linear band of increased density in the right midlung is noted as well, likely atelectasis or scar. IMPRESSION: 1. Chronic findings in the shoulder with no acute osseous abnormality. 2. Abnormalities in the visualized right lung. Dedicated chest x-ray is recommended. Dictated by: Dictated on workstation # [id number]
== END ==
LOC: RAD 14:00
PROVIDERS: ATTEND Family Medicine
DX: M25.511 Pain in right shoulder (principal); R91.8 Other nonspecific abnormal finding of lung field
CPT/HCPCS: 73030

== ENCOUNTER → 2023-08-11 | Outpatient (CLI) | payer MEDICARE ==
--- NOTE | 2023-08-11 14:13 | Diagnostic Imaging Report ---
EXAMINATION: Chest 2 view HISTORY: Lung nodule COMPARISON: None available. FINDINGS: There is a nodule in the right lung base measuring 8 mm, not clearly present on prior exam.. No pleural effusion or pneumothorax. Heart size is normal. IMPRESSION: 1. Nodule in the right lung base not clearly present on prior exam. Chest CT recommended. Dictated by: Dictated on workstation # [id number]
== END ==
LOC: RAD 13:44
PROVIDERS: ATTEND Family Medicine
DX: R91.1 Solitary pulmonary nodule (principal)
CPT/HCPCS: 71046

== ENCOUNTER → 2023-08-23 | Outpatient (CLI) | payer MEDICARE ==
[~2023-08-23] MED LIST changes: +HOLD METFORMIN - RECEIVED CONTRAST 20 ML VIAL IV SCH; +IOHEXOL 350 MG/ML 100 ML (OMNIPAQUE 350) VIAL IV ONE; +NS 100 ML (IVPB) BAG IV ONE
[2023-08-23 08:47] LABS: CREATININE SERUM 0.76 MG/DL (0.60-1.30)
--- NOTE | 2023-08-23 10:38 | Diagnostic Imaging Report ---
INDICATION: Pulmonary nodule on right side, history of left lobectomy, follow-up TECHNIQUE: Multiple contiguous axial images were obtained through the chest after administration of intravenous contrast. Auto Exposure Controls were utilized during the CT exam to meet ALARA standards for radiation dose reduction. Comparison made to prior CT 05/22/2020 There is cardiomegaly. There are no enlarged mediastinal nodes. There are multiple calcified granulomata in the right hilum and mediastinum. There are no suspicious mediastinal nodes. There is no pleural or pericardial fluid. Lung windows show some chronic interstitial changes. There is no consolidation or suspicious pulmonary parenchymal lesion. Is a calcified granuloma in the right lower lobe, this appears stable compared to the previous study. Visualized portions of the upper abdomen demonstrate numerous calcified granulomata in the spleen and in the liver. There is no suspicious abnormality in the upper abdomen. Small partially calcified cyst in the right kidney is unchanged. IMPRESSION: Chronic interstitial changes. Multiple calcified granulomata are noted. There is no suspicious pulmonary nodule or pleural fluid or adenopathy. Dictated by: Dictated on workstation # [id number]
== END ==
LOC: RAD 07:58
PROVIDERS: ATTEND Family Medicine
DX: J98.4 Other disorders of lung (principal); R91.1 Solitary pulmonary nodule
CPT/HCPCS: 36415; 71260; 82565; 84520